=== PATIENT | female | born 1975 | race Caucasian/White ===

== ENCOUNTER 2021-12-01 05:33 | Day surgery (SDC) | payer OTHER ==
[2021-11-28 18:36] VITALS: BMI 29.0
[2021-12-01] MEDS ORDERED: PROPOFOL 20 ML ONE ×2 (09:50)
[2021-12-01] MEDS ORDERED: DEXAMETHASONE SOD PHOSPHATE 4 MG/1 ML VIAL ONE (09:50)
[2021-12-01] MEDS ORDERED: DEXAMETHASONE SOD PHOSPHATE 10 MG/1 ML VIAL ONE (09:51)
[2021-12-01] MEDS ORDERED: LIDOCAINE HCL 1% PRESERVATIVE FREE - 30ML VIAL INF ONE (10:01)
[2021-12-01] MEDS ORDERED: IOHEXOL 180 MG/1 ML ML IJ ONE (10:01)
[2021-12-01] MEDS ORDERED: DEXAMETHASONE SOD PHOSPHATE 10 MG/1 ML VIAL IM ONE (10:01)
[2021-12-01] MEDS ORDERED: BUPIVACAINE HCL/PF 0.25% (2.5MG/ML) 10 ML VIAL IJ ONE (10:01)
[2021-12-01 12:58] VITALS: BP 129/77; PULSE 67; TEMP 98.7
== END 2021-12-01 11:35 | disposition home or self-care (01) ==
LOC: EDBD → JASU-SURG 05:33
PROVIDERS: ATTEND Physical Medicine & Rehabilitation
PROC: 3E0R33Z Introduction of Anti-inflammatory into Spinal Canal, Percutaneous Approach (ICD-10-PCS; 2021-12-01)
PROC: B01BYZZ Fluoroscopy of Spinal Cord using Other Contrast (ICD-10-PCS; 2021-12-01)
PROC: 3E0R3BZ Introduction of Anesthetic Agent into Spinal Canal, Percutaneous Approach (ICD-10-PCS; principal; 2021-12-01 09:30)
DX: M54.16 Radiculopathy, lumbar region (principal); M54.50 Low back pain, unspecified
CPT/HCPCS: 76000-TC-FY; 81025; J1100

== ENCOUNTER 2022-08-18 18:01 | Emergency (ER) | payer OTHER ==
[2022-08-18 18:58] VITALS: BP 102/73; PULSE 88; RESP 18; TEMP 98.1; BMI 28.2
[2022-08-18 22:20] LABS: BASO % 0.5 % (0-2.0); HEMATOCRIT 37.8 % (32.4-45.2); HEMOGLOBIN 12.8 GM/dL (10.7-15.3); LYMPH % 36.6 % (8-40); MCH 31.2 pg (25.7-33.7); MCHC 33.9 g/dl (32.0-36.0); MEAN CELL VOLUME 92.2 fl (80-96); MEAN PLT VOLUME 9.1 fl (7.5-11.1); MONO % 8.5 % (3.8-10.2); NEUT % 52.4 % (42.8-82.8); PLATELET COUNT 200 10^3/uL (134-434); RDW 12.6 % (11.6-15.6); WHITE BLOOD COUNT 5.7 K/mm3 (4.0-10.0)
[2022-08-18 23:50] LABS: ERYTHROCYTE SEDIMENTATION RATE 6 mm/hr (0-20)
[2022-08-18 23:55] LABS: ALBUMIN 3.7 g/dl (3.4-5.0)
[2022-08-18 23:58] LABS: CREATININE 0.6 mg/dL (0.55-1.3)
[2022-08-19] LABS: TOT PROT 7.1 g/dl (6.4-8.2)
[2022-08-19 00:23] LABS: BLOOD UREA NITROGEN 12.9 mg/dL (7-18)
[2022-08-19 00:30] LABS: N-TERMINAL BNP 42.9 pg/ml (5-125)
[2022-08-19 00:33] LABS: BILIRUBIN,TOTAL 0.3 mg/dL (0.2-1)
[2022-08-21 15:12] LABS: BABESIA MICROTI ANTIBODY IGG <1:10 (Neg:<1:10); BABESIA MICROTI ANTIBODY IGM <1:10 (Neg:<1:10)
== END 2022-08-19 00:41 | disposition home or self-care (01) ==
LOC: JERFT 18:01 → JER 18:01 → JERFT 08-19 00:41
DX: R00.2 Palpitations (principal)
CPT/HCPCS: 0241U-QW; 36415; 71046-TC-FY; 80053; 83880; 84439; 84443; 84484; 85025; 85651; 86140; 86618; 86753; 93005; 93010; 99285-25